=== PATIENT | male | born 2000 | race Caucasian/White ===

== ENCOUNTER 2022-02-21 09:38 | Emergency (ER) | payer OTHER ==
[~2022-02-21] VITALS: Ht 182.9 cm; Wt 77.3 kg
[2022-02-21] MEDS ORDERED: NAPR-837 PO (11:47)
[2022-02-21] MEDS ORDERED: CYCL-707 PO (11:47)
[2022-02-21 12:01] VITALS: BP 133/77
== END 2022-02-21 12:05 | disposition home or self-care (01) ==
LOC: M ED 09:38
DX: S16.1XXA Strain of muscle, fascia and tendon at neck level, initial encounter (principal); X50.0XXA Overexertion from strenuous movement or load, initial encounter; Z88.0 Allergy status to penicillin